=== PATIENT | male | born 1975 | race Hispanic/Latino ===

== ENCOUNTER 2018-09-14 10:27 | Emergency (ER) | payer BC ==
[2018-09-14] MEDS ORDERED: ONDANSETRON HCL 4 MG/2 ML VIAL ONE (11:03)
[2018-09-14] MEDS ORDERED: SODIUM CHLORIDE 0.9% 1000ML 1,000 ML IV ONE (11:04)
[2018-09-14 11:06] LABS: APPEARANCE,URINE CLEAR (CLEAR); BILIRUBIN,URINE NEGATIVE (NEGATIVE); COLOR,URINE YELLOW (YELLOW); GLUCOSE, URINE (UA) >=1000 mg/dL (NEGATIVE); KETONES,URINE 5 mg/dL (NEGATIVE); LEUKOCYTE ESTERASE ,URINE NEGATIVE (NEGATIVE); NITRATE,URINE NEGATIVE (NEGATIVE); OCCULT BLOOD,URINE TRACE-INTACT (NEGATIVE); PH,URINE 5.5 (5.0-8.0); PROTEIN,URINE 30 mg/dL (NEGATIVE); UROBILINOGEN,URINE 0.2 mg/dL (0.2-1.0)
[2018-09-14 11:17] LABS: BACTERIA,URINE None Seen /HPF (None Seen); RBC,URINE 0-1 /HPF (0-1); SQUAMOUS EPITHELIAL CELL,UR 0-2 /HPF (0-2); WBC,URINE 0-1 /HPF (0-1)
[2018-09-14 11:24] LABS: AMPHET/METH SCREEN,URINE NEGATIVE (NEGATIVE); BARBITURATE SCREEN, URINE NEGATIVE (NEGATIVE); BENZODIAZEPINES SCREEN,URINE NEGATIVE (NEGATIVE); CANNABINOID SCREEN,URINE NEGATIVE (NEGATIVE); COCAINE SCREEN,URINE NEGATIVE (NEGATIVE); OPIATE SCREEN,URINE NEGATIVE (NEGATIVE); PHENCYCLIDINE SCREEN,URINE NEGATIVE (NEGATIVE)
[2018-09-14 11:37] LABS: BASOPHILS % (AUTO) 0.6 % (0.0-5.0); EOSINOPHILS % (AUTO) 1.6 % (0.0-8.0); HEMATOCRIT 39.3 % (42-54); LYMPHOCYTES % (AUTO) 23.6 % (21.0-51.0); MEAN CORPUSCULAR HEMOGLOBIN 35.1 pg (27.0-33.0); MEAN CORPUSCULAR HGB CONC 35.2 g/dL (32.0-36.0); MEAN CORPUSCULAR VOLUME 99.6 fL (79-99); MONOCYTES % (AUTO) 7.7 % (3.0-13.0); NEUTROPHILS % (AUTO) 66.5 % (40.0-77.0); NUCLEATED RED BLOOD CELLS 0.2 % (0.0-0.19); PLATELET COUNT (AUTO) 194 K/uL (130-400); RED BLOOD CELL COUNT(AUTO) 3.95 MIL/uL (4.50-6.20); RED CELL DISTRIBUTION WIDTH 12.3 % (11.0-15.5)
[2018-09-14 12:09] LABS: POTASSIUM 4.7 mmol/L (3.5-5.1)
[2018-09-14 12:17] LABS: ALBUMIN 3.6 g/dL (3.5-5.0); BILIRUBIN,DIRECT 0.1 mg/dL (0.0-0.3); BILIRUBIN,TOTAL 0.7 mg/dL (0.2-1.0); TOTAL PROTEIN, SERUM 7.8 g/dL (6.0-8.3)
[2018-09-14 12:29] LABS: B-TYPE NATRIURETIC PEPTIDE 10 pg/mL (0-100)
== END 2018-09-14 14:16 | disposition home or self-care (01) ==
LOC: EDH 10:27
DX: R42 Dizziness and giddiness (principal); I10 Essential (primary) hypertension; E78.00 Pure hypercholesterolemia, unspecified; E11.9 Type 2 diabetes mellitus without complications; Z72.0 Tobacco use
CPT/HCPCS: 36415; 71045; 80048; 80076; 80305; 81001; 82550; 82948; 83880; 84484; 85025; 93005; 96361; 96374; 99285; J2405; J7030

== ENCOUNTER → 2018-09-22 | Outpatient (CLI) | payer BC ==
[~2018-09-22] MED LIST: IOHEXOL-350 50ML VIAL IV ONE
== END | disposition home or self-care (01) ==
LOC: RAH 09:20
PROVIDERS: ATTEND Nurse Practitioner Adult Health
DX: R42 Dizziness and giddiness (principal); R51 Headache
CPT/HCPCS: 70470; Q9967

== ENCOUNTER → 2018-09-27 | Outpatient (CLI) | payer OTHER | END | disposition home or self-care (01) | LOC: RAH 12:02 | PROVIDERS: ATTEND Nurse Practitioner Adult Health | DX: Z13.6 Encounter for screening for cardiovascular disorders (principal) | CPT/HCPCS: 75571 ==

== ENCOUNTER → 2018-10-03 | Outpatient (CLI) | payer BC | END | disposition home or self-care (01) | LOC: RAH 11:13 | PROVIDERS: ATTEND Internal Medicine Cardiovascular Disease | DX: E04.1 Nontoxic single thyroid nodule (principal); E07.9 Disorder of thyroid, unspecified | CPT/HCPCS: 76536 ==

== ENCOUNTER 2018-11-07 09:50 | Observation (INO) | payer BC ==
[2018-11-02 12:42] VITALS: BP 131/76
[2018-11-02 12:48] LABS: APPEARANCE,URINE Cloudy (CLEAR); BASOPHILS % (AUTO) 1.1 % (0.0-5.0); BILIRUBIN,URINE Negative (NEGATIVE); COLOR,URINE Yellow (YELLOW); EOSINOPHILS % (AUTO) 2.3 % (0.0-8.0); GLUCOSE, URINE (UA) >=1000 mg/dL (NEGATIVE); HEMATOCRIT 39.6 % (42-54); KETONES,URINE Negative (NEGATIVE); LEUKOCYTE ESTERASE ,URINE Negative (NEGATIVE); LYMPHOCYTES % (AUTO) 25.7 % (21.0-51.0); MEAN CORPUSCULAR HEMOGLOBIN 35.2 pg (27.0-33.0); MEAN CORPUSCULAR HGB CONC 34.7 g/dL (32.0-36.0); MEAN CORPUSCULAR VOLUME 101.4 fL (79-99); NEUTROPHILS % (AUTO) 61.9 % (40.0-77.0); NITRATE,URINE Negative (NEGATIVE); NUCLEATED RED BLOOD CELLS 0.1 % (0.0-0.19); OCCULT BLOOD,URINE Trace (NEGATIVE); PLATELET COUNT (AUTO) 211 K/uL (130-400); PROTEIN,URINE POS 2+ mg/dL (NEGATIVE); RED CELL DISTRIBUTION WIDTH 12.6 % (11.0-15.5); WHITE BLOOD COUNT (AUTO) 9.4 K/uL (4.8-10.8)
[2018-11-02 12:55] VITALS: BP 131/76
[2018-11-02 12:55] LABS: CREATININE 0.9 mg/dL (0.5-1.5); POTASSIUM 4.9 mmol/L (3.5-5.1)
[2018-11-02 12:57] LABS: INR 0.95 (0.85-1.15)
[2018-11-02 13:34] LABS: BACTERIA,URINE None Seen /HPF (None Seen); MUCUS,URINE Moderate LPF (None Seen); RBC,URINE 0-1 /HPF (0-1); WBC,URINE None Seen /HPF (0-1)
[~2018-11-07] VITALS: Ht 188 cm; Wt 103.1 kg
[2018-11-07] VITALS (10 sets, daily range): BP systolic 112–166; BP diastolic 64–89
[~2018-11-07 09:50] MED LIST changes: +AMLO2.5T4 PO; +ASPI-1181 PO; +ATOR10TA69 PO; +GLIP10TA9 PO; +INSU3INS10 SQ; -IOHEXOL-350 50ML VIAL IV ONE; +ISOS20TA7 PO; +METF-527 PO; +METO-391 PO
--- NOTE | 2018-11-07 11:15 | NUR ---
Spoke with JESSICA Joshua. Informed Andrea of pt's blood sugar and orders given for 1/2 sliding scale. Also informed JESSICA Mendez that the pt had not taken any of his medications this morning. No orders given to administer any.
--- NOTE | 2018-11-07 11:20 | NUR ---
Pt allowed to have coffee/water/juice x 1 as per SUSAN Watkins Day Pt [employer] as SUSAN Mcknight called from director of cath lab and stated that there was a delay.
[2018-11-07] MEDS ORDERED: INSULIN HUMULIN R 100 UNIT/ML 3ML ONE (11:21)
[2018-11-07] MEDS ORDERED: INSULIN HUMULIN R 100 UNIT/ML 3ML SQ SCH (12:00)
[2018-11-07] MEDS ORDERED: IOHEXOL 350 MG/ML 100ML INFUS..BTL IV ONE (16:59)
[2018-11-07] MEDS ORDERED: LIDOCAINE HCL 2% 20ML ONE (16:59)
[2018-11-07] MEDS ORDERED: BIVALIRUDIN 250 MG/VIAL IV ONE (16:59)
[2018-11-07] MEDS ORDERED: IOHEXOL-350 50ML VIAL IV ONE ×2 (16:59→18:37)
[2018-11-07] MEDS ORDERED: NITROGLYCERIN 5 MG/ML 10 ML VIAL IV ONE (16:59)
[2018-11-07] MEDS ORDERED: MIDAZOLAM HCL 1 MG/ML 2ML VIAL ONE (17:53)
[2018-11-07] MEDS ORDERED: HEPARIN SODIUM 1000UNIT/ML 10ML VIAL ONE (18:16)
[2018-11-07] MEDS ORDERED: ADENOSINE 90MG/30ML VIAL IV ONE (18:18)
[2018-11-07] MEDS ORDERED: LABETALOL 20 MG/4 ML DISP.SYRIN IV ONE (18:49)
[2018-11-07] MEDS ORDERED: SODIUM CHLORIDE 0.9% 1000ML 1,000 ML IV SCH (19:08)
[2018-11-07] MEDS ORDERED: GLUCAGON 1MG KIT 1 MG ML IM PRN (19:15)
[2018-11-07] MEDS ORDERED: LABETALOL HCL 5 MG/ML 20ML VIAL IV PRN (19:15)
[2018-11-07] MEDS ORDERED: DEXTROSE 50%-WATER 50 ML DISP.SYRIN IV PRN (19:15)
[2018-11-07] MEDS ORDERED: LABETALOL HCL 5 MG/ML 20ML VIAL IV ONE (19:27)
[2018-11-07] MEDS ORDERED: PHARMACY COMMUNICATION MISC SCH (20:15)
[2018-11-07] MEDS ORDERED: Metoprolol Succinate 50 MG PO SCH (21:00)
[2018-11-07] MEDS ORDERED: ATORVASTATIN CALCIUM 20 MG TABLET PO SCH (21:00)
[2018-11-07] MEDS: INSULIN HUMULIN R 100 UNIT/ML 3ML SQ SCH (21:00)
[2018-11-07] MEDS: AMLODIPINE BESYLATE 2.5 MG TAB PO SCH (21:05)
[2018-11-07] MEDS: ISOSORBIDE MONONITRATE 20 MG TABLET PO SCH (21:05)
[2018-11-07] MEDS ORDERED: METOPROLOL TARTRATE 50 MG TAB PO ONE (22:45)
[2018-11-08 04:00] VITALS: BP 106/63
[2018-11-08 05:27] LABS: HEMATOCRIT 35.7 % (42-54); MEAN CORPUSCULAR HEMOGLOBIN 35.6 pg (27.0-33.0); MEAN CORPUSCULAR HGB CONC 34.9 g/dL (32.0-36.0); MEAN CORPUSCULAR VOLUME 102.1 fL (79-99); NUCLEATED RED BLOOD CELLS 0.1 % (0.0-0.19); PLATELET COUNT (AUTO) 153 K/uL (130-400); RED CELL DISTRIBUTION WIDTH 12.7 % (11.0-15.5); WHITE BLOOD COUNT (AUTO) 7.8 K/uL (4.8-10.8)
[2018-11-08 05:51] LABS: CREATININE 0.8 mg/dL (0.5-1.5); POTASSIUM 4.1 mmol/L (3.5-5.1)
[2018-11-08] MEDS: INSULIN HUMULIN R 100 UNIT/ML 3ML SQ SCH ×2 (06:44→11:41)
[2018-11-08 07:30] VITALS: BP 161/80
--- NOTE | 2018-11-08 08:45 | NUR ---
AM ASSESSMENT PT LAYING IN BED, RESTING. SPOUSE SPOUSE @ BEDSIDE. A/O X 3. NO SOB. NO DISTRESS NOTED. DENIES CHEST PAIN OR DISCOMFORT. DENIES PALPITATIONS. TELE: SR. DENIES N/V AND/OR DIARRHEA. RT GROIN D-STAT, DRY & INTACT. PUNCTURE SITE SOFT, NON-TENDER. NO BLEEDING, NO HEMATOMA NOTED. (+) BILATERAL PEDAL PULSES. BLE PINK & WARM TO TOUCH. UP AD TRAE. INSTRUCTED TO CALL FOR ASSISTANCE. CALL ALEX W/IN REACH.
[2018-11-08] MEDS ORDERED: Metoprolol Succinate 50 MG PO SCH (09:00)
[2018-11-08] MEDS ORDERED: GLIPIZIDE 5 MG TABLET PO SCH (09:00)
[2018-11-08] MEDS: ISOSORBIDE MONONITRATE 20 MG TABLET PO SCH (09:00)
[2018-11-08] MEDS ORDERED: FLU VACC QS2019-20 36MOS UP/PF 60 MCG/0.5 ML ML IM ONE (09:00)
[2018-11-08] MEDS ORDERED: ASPIRIN 81 MG EC TAB PO SCH (09:00)
[2018-11-08] MEDS: AMLODIPINE BESYLATE 2.5 MG TAB PO SCH (09:04)
[2018-11-08 11:00] VITALS: BP 138/77
--- NOTE | 2018-11-08 12:40 | NUR ---
DISCHARGE VERBAL & WRITTEN DISCHARGE INSTRUCTIONS REVIEWED & GIVEN TO PT & SPOUSE. QUESTIONS ENCOURAGED & CLARIFIED. PROPER CARE & ACTIVITY AFTER LEFT HEART REVIEWED. PRESCRIPTION FOR METOPROLOL SUCCINATE REVIEWED. & GIVEN TO PT. SIGNED COPY PLACED IN CHART. TELE ZEINA REMOVED EARLIER. IV DISCONTINUED. D-STAT DSG REMOVED BY DR VEE. PT & SPOUSE TO GATHER PERSONAL BELONGINGS. WILL NOTIFY STAFF WHEN READY TO BE TAKEN TO PRIVATE VEHICLE.
--- NOTE | 2018-11-08 12:50 | NUR ---
DISCHARGE PT TAKEN TO PRIVATE VEHICLE VIA WC BY [facility] PCP, ACCOMPANIED BY SPOUSE. NO DISTRESS NOTED.
== END 2018-11-08 12:45 | disposition home or self-care (01) ==
LOC: DAH 09:50 → 4CH 09:51 → DAH 09:51
PROVIDERS: ADMIT Internal Medicine Cardiovascular Disease; ATTEND Internal Medicine Cardiovascular Disease
DX: I25.10 Atherosclerotic heart disease of native coronary artery without angina pectoris (principal); E11.9 Type 2 diabetes mellitus without complications; I10 Essential (primary) hypertension; E78.5 Hyperlipidemia, unspecified; R79.89 Other specified abnormal findings of blood chemistry; F17.210 Nicotine dependence, cigarettes, uncomplicated; Z90.49 Acquired absence of other specified parts of digestive tract; Z87.19 Personal history of other diseases of the digestive system; Z79.4 Long term (current) use of insulin; Z79.82 Long term (current) use of aspirin; Z79.899 Other long term (current) drug therapy
CPT/HCPCS: 36415 ×2; 71045; 80048 ×2; 80061; 81001; 82948 ×6; 85025; 85027; 85610; 85730; 93005; 93458; 93571; 93572; 96372; A4215; A4216; A4221; A4222; A4223 ×3; A4606; C1760; C1769; C1887 ×2; C1894; G0378 ×18; J0153; J1644 ×2; J1815 ×3; J2250; J3490 ×3; Q9965; Q9967 ×3; 99156; 99157; J0583

== ENCOUNTER 2021-12-18 14:14 | Inpatient (IN) | payer BC ==
[~2021-12-18] VITALS: Ht 182.9 cm; Wt 102.6 kg
[~2021-12-18 14:14] MED LIST changes: -AMLO2.5T4 PO; -ASPI-1181 PO; +ASPI-1443 PO; +EMPA25TA PO; -ISOS20TA7 PO; +ISOS20TA85 PO; +LISI10TA24 PO
[2021-12-18 14:43] LABS: BASOPHILS % (AUTO) 0.4 % (0.0-5.0); EOSINOPHILS % (AUTO) 1.8 % (0.0-8.0); HEMATOCRIT 28.2 % (42-54); LYMPHOCYTES % (AUTO) 11.3 % (21.0-51.0); MEAN CORPUSCULAR HEMOGLOBIN 32.1 pg (27.0-33.0); MEAN CORPUSCULAR HGB CONC 34.8 g/dL (32.0-36.0); MEAN CORPUSCULAR VOLUME 92.5 fL (79-99); MONOCYTES % (AUTO) 15.4 % (3.0-13.0); PLATELET COUNT (AUTO) 167 K/uL (130-400); RED BLOOD CELL COUNT(AUTO) 3.05 MIL/uL (4.50-6.20); RED CELL DISTRIBUTION WIDTH 14.4 % (11.0-15.5); WHITE BLOOD COUNT (AUTO) 7.3 K/uL (4.8-10.8)
[2021-12-18 15:03] LABS: CREATININE 1.9 mg/dL (0.5-1.5); POTASSIUM 4.5 mmol/L (3.5-5.1)
[2021-12-18 15:08] LABS: ALBUMIN 3.1 g/dL (3.5-5.0); TOTAL PROTEIN, SERUM 7.7 g/dL (6.0-8.3)
[2021-12-18] MEDS ORDERED: ZOSYN 3.375GM +NS 50ML IV STA (17:03)
[2021-12-18] MEDS ORDERED: 0.9% NACL 250ML IV SCH (17:30)
[2021-12-18] MEDS ORDERED: VANCOMYCIN 1G/250ML KIT 250 ML IV ONE ×2 (17:30→21:00)
[2021-12-18] MEDS ORDERED: VANCOMYCIN 1G VIAL IVPB SCH (17:30)
[2021-12-18] MEDS ORDERED: VANCOMYCIN 1G VIAL IVPB ONE (17:30)
[2021-12-18] MEDS ORDERED: ACETAMINOPHEN 325 MG TAB PO PRN (19:30)
[2021-12-18] MEDS ORDERED: VANCOMYCIN PROTOCOL PER PHARMACY IV PRN (19:30)
[2021-12-18] MEDS ORDERED: ONDANSETRON 4MG INJ IV PRN (19:30)
[2021-12-18] MEDS ORDERED: HYDROCODONE/ACETAMINOPHEN 5/325 MG TAB PO PRN ×2 (19:30)
[2021-12-18] MEDS ORDERED: ZOSYN 3.375GM+NS 50ML 50 ML IV SCH (19:30)
[2021-12-18] MEDS: 0.9%NACL 1000ML 1,000 ML IV SCH (19:36)
[2021-12-18] MEDS: INSULIN HUMULIN R 100 UNIT/ML 3ML SQ SCH (21:00)
[2021-12-18 21:12] LABS: APPEARANCE,URINE CLEAR (CLEAR); BILIRUBIN,URINE NEGATIVE (NEGATIVE); COLOR,URINE LIGHT-YELLOW (YELLOW); CREATININE,URINE RANDOM 66 mg/dL (30-135); GLUCOSE, URINE (UA) TRACE mg/dL (NEGATIVE); KETONES,URINE NEGATIVE (NEGATIVE); LEUKOCYTE ESTERASE ,URINE NEGATIVE Leu/uL (NEGATIVE); NITRATE,URINE NEGATIVE (NEGATIVE); OCCULT BLOOD,URINE SMALL (NEGATIVE); PH,URINE 5.5 (5.0-8.0); PROTEIN,URINE 100 mg/dL (NEGATIVE); SODIUM,URINE RANDOM 116 mmol/l (40-220); UROBILINOGEN,URINE 0.2 mg/dL (0.2-1.0)
[2021-12-18 21:20] LABS: MUCUS,URINE RARE LPF (None Seen); SQUAMOUS EPITHELIAL CELL,UR RARE /HPF (0-2); WBC,URINE 0-1 /HPF (0-1)
[2021-12-19 00:40] VITALS: BP 111/65
[2021-12-19] MEDS: ZOSYN 3.375GM+NS 50ML 50 ML IV SCH ×3 (01:32→17:51)
[2021-12-19] MEDS: 0.9%NACL 1000ML 1,000 ML IV SCH (01:32)
[2021-12-19] MEDS ORDERED: LISI40TA9 PO (03:16)
[2021-12-19] MEDS ORDERED: MECO10005 PO (03:16)
[2021-12-19] MEDS ORDERED: MECL-160 PO (03:16)
[2021-12-19] MEDS ORDERED: AEC81 PO (03:16)
[2021-12-19] MEDS ORDERED: CLOP75TA32 PO (03:16)
[2021-12-19] MEDS ORDERED: METO75TA PO (03:16)
[2021-12-19] MEDS ORDERED: BACL5TAB PO (03:16)
[2021-12-19] MEDS ORDERED: ATOR20TA65 PO (03:16)
[2021-12-19] MEDS ORDERED: NIFE30TA98 PO (03:16)
[2021-12-19] MEDS ORDERED: GLIP5TAB11 PO (03:16)
[2021-12-19] MEDS ORDERED: GARL1000 PO (03:16)
[2021-12-19] MEDS ORDERED: INSU100V52 SQ (03:16)
[2021-12-19] MEDS ORDERED: FIBER CAPSULES PO (03:16)
[2021-12-19] MEDS ORDERED: METF-444 PO (03:16)
[2021-12-19] MEDS ORDERED: CLIN-141 PO (03:16)
[2021-12-19 04:00] VITALS: BP 138/68
[2021-12-19] MEDS ORDERED: 0.9% NACL 250ML 250 ML ONE (06:29)
[2021-12-19] MEDS: VANCOMYCIN 1G/250ML KIT 250 ML IV SCH ×2 (06:33→17:51)
[2021-12-19] MEDS: INSULIN HUMULIN R 100 UNIT/ML 3ML SQ SCH ×4 (06:40→20:54)
[2021-12-19 07:06] VITALS: BP 134/73
[2021-12-19 07:19] LABS: BASOPHILS % (AUTO) 0.3 % (0.0-5.0); EOSINOPHILS % (AUTO) 1.6 % (0.0-8.0); HEMATOCRIT 27.6 % (42-54); LYMPHOCYTES % (AUTO) 13.2 % (21.0-51.0); MEAN CORPUSCULAR HEMOGLOBIN 31.8 pg (27.0-33.0); MEAN CORPUSCULAR HGB CONC 34.1 g/dL (32.0-36.0); MEAN CORPUSCULAR VOLUME 93.2 fL (79-99); MONOCYTES % (AUTO) 19.6 % (3.0-13.0); NEUTROPHILS % (AUTO) 63.9 % (40.0-77.0); PLATELET COUNT (AUTO) 160 K/uL (130-400); RED BLOOD CELL COUNT(AUTO) 2.96 MIL/uL (4.50-6.20); RED CELL DISTRIBUTION WIDTH 14.3 % (11.0-15.5); WHITE BLOOD COUNT (AUTO) 5.8 K/uL (4.8-10.8)
[2021-12-19 07:26] LABS: HEMOGLOBIN A1C 6.9 % (4.0-6.0)
[2021-12-19 07:40] LABS: CREATININE 1.2 mg/dL (0.5-1.5); MAGNESIUM 1.5 mg/dL (1.80-2.40); PHOSPHORUS 3.4 mg/dL (2.5-4.9); POTASSIUM 4.1 mmol/L (3.5-5.1)
[2021-12-19 07:42] LABS: % IRON SATURATION 6.9 % (30-44)
[2021-12-19] MEDS: FERROUS SULFATE 325 MG TABLET.DR PO SCH (08:44)
[2021-12-19] MEDS: FAMOTIDINE 20MG TAB PO SCH (08:44)
[2021-12-19] MEDS ORDERED: FAMOTIDINE 20MG VIAL IV PRN (09:00)
[2021-12-19] MEDS ORDERED: MAGNESIUM 2GM PREMIX 50ML 50 ML IV PRN (11:00)
[2021-12-19] MEDS ORDERED: POTASSIUM CHLORIDE 10% ELIXIR 20 MEQ/15 ML UDCUP PO PRN (11:00)
[2021-12-19] MEDS ORDERED: LIDOCAINE HCL-MPF 1% 2ML VIAL IV PRN (11:00)
[2021-12-19] MEDS ORDERED: POTASSIUM CHLORIDE 20MEQ/100ML 100 ML IV PRN (11:00)
[2021-12-19] MEDS ORDERED: KCL 20 MEQ ERTAB PO PRN (11:00)
[2021-12-19 11:10] VITALS: BP 148/78
[2021-12-19] MEDS ORDERED: GADOTERATE MEGLUMINE 10 MMOL/20 ML VIAL IV ONE (11:54)
[2021-12-19] MEDS: ASPIRIN 81 MG EC TAB PO SCH (12:55)
[2021-12-19] MEDS: BACLOFEN 10 MG TABLET PO SCH ×3 (12:55→20:52)
[2021-12-19] MEDS: NIFEDIPINE ER 30 MG TAB PO SCH (12:55)
[2021-12-19 16:22] VITALS: BP 156/79
[2021-12-19 20:09] VITALS: BP 136/65
[2021-12-19] MEDS: ATORVASTATIN 20 MG TABLET PO SCH (20:52)
[2021-12-20 00:06] VITALS: BP 136/71
[2021-12-20] MEDS: ZOSYN 3.375GM+NS 50ML 50 ML IV SCH ×3 (01:12→17:06)
[2021-12-20 03:54] VITALS: BP 126/82
[2021-12-20 05:46] LABS: BASOPHILS % (AUTO) 0.4 % (0.0-5.0); EOSINOPHILS % (AUTO) 2.3 % (0.0-8.0); HEMATOCRIT 26.6 % (42-54); LYMPHOCYTES % (AUTO) 20.9 % (21.0-51.0); MEAN CORPUSCULAR HEMOGLOBIN 32.4 pg (27.0-33.0); MEAN CORPUSCULAR HGB CONC 34.6 g/dL (32.0-36.0); MEAN CORPUSCULAR VOLUME 93.7 fL (79-99); MONOCYTES % (AUTO) 17.5 % (3.0-13.0); PLATELET COUNT (AUTO) 171 K/uL (130-400); RED BLOOD CELL COUNT(AUTO) 2.84 MIL/uL (4.50-6.20); RED CELL DISTRIBUTION WIDTH 13.8 % (11.0-15.5); WHITE BLOOD COUNT (AUTO) 5.3 K/uL (4.8-10.8)
[2021-12-20 06:21] LABS: CREATININE 1.1 mg/dL (0.5-1.5); POTASSIUM 4.4 mmol/L (3.5-5.1)
[2021-12-20] MEDS: INSULIN HUMULIN R 100 UNIT/ML 3ML SQ SCH ×4 (07:30→21:03)
[2021-12-20 07:40] VITALS: BP 126/66
[2021-12-20] MEDS: LISINOPRIL 40 MG TABLET PO SCH (08:38)
[2021-12-20] MEDS: NIFEDIPINE ER 30 MG TAB PO SCH (08:38)
[2021-12-20] MEDS: CLOPIDOGREL 75MG TAB PO SCH (08:39)
[2021-12-20] MEDS: BACLOFEN 10 MG TABLET PO SCH ×3 (08:39→21:04)
[2021-12-20] MEDS: FERROUS SULFATE 325 MG TABLET.DR PO SCH (08:39)
[2021-12-20] MEDS: FAMOTIDINE 20MG TAB PO SCH (08:39)
[2021-12-20] MEDS: ASPIRIN 81 MG EC TAB PO SCH (08:39)
[2021-12-20 11:38] VITALS: BP 140/73
[2021-12-20] MEDS ORDERED: BALSAM PERU/CASTOR OIL 60 GM TUBE TP SCH (14:00)
[2021-12-20] MEDS: VANCOMYCIN 1G/250ML KIT 250 ML IV SCH ×2 (14:59→22:23)
[2021-12-20 15:41] VITALS: BP 144/76
[2021-12-20] MEDS ORDERED: GADOTERATE MEGLUMINE 10 MMOL/20 ML VIAL IV ONE (15:51)
[2021-12-20 20:00] VITALS: BP 142/72
[2021-12-20] MEDS: ATORVASTATIN 20 MG TABLET PO SCH (21:04)
[2021-12-21] VITALS (18 sets, daily range): BP systolic 121–160; BP diastolic 67–99
[2021-12-21] MEDS: ZOSYN 3.375GM+NS 50ML 50 ML IV SCH ×2 (01:00→09:42)
[2021-12-21 05:35] LABS: BASOPHILS % (AUTO) 0.3 % (0.0-5.0); EOSINOPHILS % (AUTO) 3.7 % (0.0-8.0); HEMATOCRIT 25.5 % (42-54); MEAN CORPUSCULAR HEMOGLOBIN 32.6 pg (27.0-33.0); MEAN CORPUSCULAR HGB CONC 34.9 g/dL (32.0-36.0); MEAN CORPUSCULAR VOLUME 93.4 fL (79-99); MONOCYTES % (AUTO) 17.7 % (3.0-13.0); NEUTROPHILS % (AUTO) 54.4 % (40.0-77.0); PLATELET COUNT (AUTO) 169 K/uL (130-400); RED BLOOD CELL COUNT(AUTO) 2.73 MIL/uL (4.50-6.20); RED CELL DISTRIBUTION WIDTH 13.7 % (11.0-15.5); WHITE BLOOD COUNT (AUTO) 6.4 K/uL (4.8-10.8)
[2021-12-21 05:52] LABS: INR 0.94 (0.85-1.15); PROTHROMBIN TIME 10.3 SEC (9.6-11.6)
[2021-12-21 05:53] LABS: PARTIAL THROMBOPLASTIN TIME 27.9 SEC (26.3-35.5)
[2021-12-21 06:19] LABS: ALBUMIN 2.5 g/dL (3.5-5.0); MAGNESIUM 1.7 mg/dL (1.80-2.40); POTASSIUM 4.2 mmol/L (3.5-5.1)
[2021-12-21] MEDS ORDERED: MIDAZOLAM HCL 1 MG/ML 2ML VIAL ONE (06:39)
[2021-12-21] MEDS ORDERED: FENTANYL CITRATE PF 50 MCG/1 ML 2ML VIAL ONE ×2 (06:39→07:13)
[2021-12-21] MEDS ORDERED: PROPOFOL 10 MG/ML 20ML VIAL IV ONE (06:40)
[2021-12-21] MEDS: VANCOMYCIN 1G/250ML KIT 250 ML IV SCH ×2 (06:49→14:24)
[2021-12-21] MEDS ORDERED: BUPIVACAINE/PF 0.25% 30ML VIAL IJ ONE (07:01)
[2021-12-21] MEDS ORDERED: LIDOCAINE 1%-EPI 1:100,000 20 ML VIAL IJ ONE (07:01)
[2021-12-21] MEDS: INSULIN HUMULIN R 100 UNIT/ML 3ML SQ SCH ×2 (07:11→11:37)
[2021-12-21] MEDS ORDERED: PHENYLEPHRINE HCL 10 MG/ML 1ML VIAL IV ONE (07:17)
[2021-12-21] MEDS ORDERED: SODIUM HYPOCHLORITE 0.5% [FULL STRENGTH] 473 ML TOPICAL SOLN TP SCH (09:00)
[2021-12-21] MEDS: ASPIRIN 81 MG EC TAB PO SCH (09:43)
[2021-12-21] MEDS: NIFEDIPINE ER 30 MG TAB PO SCH (09:43)
[2021-12-21] MEDS: FERROUS SULFATE 325 MG TABLET.DR PO SCH (09:43)
[2021-12-21] MEDS: CLOPIDOGREL 75MG TAB PO SCH (09:43)
[2021-12-21] MEDS: BACLOFEN 10 MG TABLET PO SCH ×2 (09:43→14:24)
[2021-12-21] MEDS: LISINOPRIL 40 MG TABLET PO SCH (09:43)
[2021-12-21] MEDS: FAMOTIDINE 20MG TAB PO SCH (09:43)
[2021-12-21] MEDS ORDERED: LEVO750T39 PO (15:29)
[2021-12-21] MEDS ORDERED: CLIN-141 PO (15:29)
[2021-12-21] MEDS ORDERED: LEVOFLOXACIN 750 MG TABLET PO SCH (16:00)
== END 2021-12-21 17:30 | disposition home or self-care (01) | DRG 857 ==
LOC: EDH 14:14 → EDHIP 17:57 → 3CH 12-19 00:13
PROVIDERS: ADMIT Hospitalist; ATTEND Hospitalist
PROC: 0QBN0ZZ Excision of Right Metatarsal, Open Approach (ICD-10-PCS; principal; 2021-12-21 06:57)
DX: T81.49XA Infection following a procedure, other surgical site, initial encounter (principal); M86.8X7 Other osteomyelitis, ankle and foot; N17.9 Acute kidney failure, unspecified; Z20.822 Contact with and (suspected) exposure to COVID-19; D64.9 Anemia, unspecified; I10 Essential (primary) hypertension; L97.519 Non-pressure chronic ulcer of other part of right foot with unspecified severity; S92.334A Nondisplaced fracture of third metatarsal bone, right foot, initial encounter for closed fracture; E11.69 Type 2 diabetes mellitus with other specified complication; E11.51 Type 2 diabetes mellitus with diabetic peripheral angiopathy without gangrene; E78.00 Pure hypercholesterolemia, unspecified; F17.210 Nicotine dependence, cigarettes, uncomplicated; Y83.8 Other surgical procedures as the cause of abnormal reaction of the patient, or of later complication, without mention of misadventure at the time of the procedure; Z89.429 Acquired absence of other toe(s), unspecified side; Z83.3 Family history of diabetes mellitus; Z82.49 Family history of ischemic heart disease and other diseases of the circulatory system; Z79.4 Long term (current) use of insulin
CPT/HCPCS: 36415; 72100; 72158; 73630; 73720; 80048; 80053; 80202; 81001; 82570; 82948; 83036; 83540; 83550; 83605; 83735; 83935; 84100; 84300; 85025; 85610; 85651; 85730; 86850; 86900; 86901; 87040; 87070; 87076; 87077; 87186; 87205; 87635; 93926; G0378; J1815; J2250; J2370; J2543; J2704; J3010; J3370; J3475; J3490; J7030; J7050

== ENCOUNTER → 2022-04-16 | Outpatient (CLI) | payer BC ==
[~2022-04-16] MED LIST changes: +AEC81 PO; -ASPI-1443 PO; -ATOR10TA69 PO; +ATOR20TA65 PO; +BACL5TAB PO; +CLOP75TA32 PO; -EMPA25TA PO; +FIBER CAPSULES PO; -GLIP10TA9 PO; +GLIP5TAB11 PO; +INSU100V52 SQ; -INSU3INS10 SQ; -ISOS20TA85 PO; +MECO10005 PO; +METF-444 PO; -METF-527 PO; -METO-391 PO; +NIFE30TA98 PO; +TIRZ5PEN SQ
[2022-04-16 12:46] LABS: BASOPHILS % (AUTO) 0.4 % (0.0-5.0); EOSINOPHILS % (AUTO) 3.1 % (0.0-8.0); HEMATOCRIT 28.6 % (42-54); LYMPHOCYTES % (AUTO) 20.9 % (21.0-51.0); MEAN CORPUSCULAR HEMOGLOBIN 32.7 pg (27.0-33.0); MEAN CORPUSCULAR HGB CONC 33.6 g/dL (32.0-36.0); MEAN CORPUSCULAR VOLUME 97.3 fL (79-99); MONOCYTES % (AUTO) 10.4 % (3.0-13.0); NEUTROPHILS % (AUTO) 64.7 % (40.0-77.0); PLATELET COUNT (AUTO) 257 K/uL (130-400); RED BLOOD CELL COUNT(AUTO) 2.94 MIL/uL (4.50-6.20); RED CELL DISTRIBUTION WIDTH 14.5 % (11.0-15.5); WHITE BLOOD COUNT (AUTO) 7.4 K/uL (4.8-10.8)
[2022-04-16 12:52] LABS: INR 0.94 (0.85-1.15); PROTHROMBIN TIME 10.3 SEC (9.6-11.6)
[2022-04-16 12:53] LABS: PARTIAL THROMBOPLASTIN TIME 28.6 SEC (26.3-35.5)
[2022-04-16 13:04] LABS: CREATININE 1.3 mg/dL (0.5-1.5); POTASSIUM 5.4 mmol/L (3.5-5.1)
== END | disposition home or self-care (01) ==
LOC: LAB 08:05
PROVIDERS: ATTEND Internal Medicine Cardiovascular Disease
DX: I10 Essential (primary) hypertension (principal)
CPT/HCPCS: 36415; 80048; 85025; 85610; 85730

== ENCOUNTER → 2022-06-11 | Outpatient (CLI) | payer BC ==
[2022-06-11 12:15] LABS: BASOPHILS % (AUTO) 0.4 % (0.0-5.0); EOSINOPHILS % (AUTO) 2.9 % (0.0-8.0); HEMATOCRIT 30.5 % (42-54); LYMPHOCYTES % (AUTO) 20.4 % (21.0-51.0); MEAN CORPUSCULAR HEMOGLOBIN 32.8 pg (27.0-33.0); MEAN CORPUSCULAR HGB CONC 33.4 g/dL (32.0-36.0); MEAN CORPUSCULAR VOLUME 98.1 fL (79-99); MONOCYTES % (AUTO) 9.1 % (3.0-13.0); NEUTROPHILS % (AUTO) 66.8 % (40.0-77.0); PLATELET COUNT (AUTO) 235 K/uL (130-400); RED BLOOD CELL COUNT(AUTO) 3.11 MIL/uL (4.50-6.20); RED CELL DISTRIBUTION WIDTH 12.2 % (11.0-15.5); WHITE BLOOD COUNT (AUTO) 7.2 K/uL (4.8-10.8)
[2022-06-11 12:26] LABS: CREATININE 1.2 mg/dL (0.5-1.5); POTASSIUM 5.3 mmol/L (3.5-5.1)
[2022-06-11 12:53] LABS: PARTIAL THROMBOPLASTIN TIME 30.8 SEC (26.3-35.5)
[2022-06-11 13:40] LABS: INR 0.95 (0.85-1.15); PROTHROMBIN TIME 10.4 SEC (9.6-11.6)
== END | disposition home or self-care (01) ==
LOC: LAB 08:17
PROVIDERS: ATTEND Internal Medicine Cardiovascular Disease
DX: I87.2 Venous insufficiency (chronic) (peripheral) (principal)
CPT/HCPCS: 36415; 80048; 85025; 85610; 85730

== ENCOUNTER 2023-08-26 05:53 | Day surgery (SDC) | payer BC ==
[2023-08-25 12:47] VITALS: BP 136/77; PULSE 91; RESP 17
[2023-08-25 12:58] LABS: CREATININE 1.5 mg/dL (0.5-1.3); POTASSIUM 4.8 mmol/L (3.5-5.1)
[2023-08-25 13:00] LABS: BASOPHILS # (AUTO) 0.04 K/uL (0.00-0.20); BASOPHILS % (AUTO) 0.5 % (0.0-5.0); EOSINOPHILS # (AUTO) 0.27 K/uL (0.00-0.70); EOSINOPHILS % (AUTO) 3.1 % (0.0-8.0); HEMATOCRIT 30.3 % (42-54); IMMATURE GRANULOCYTE ABSOLUTE 0.09 K/uL (0-1); LYMPHOCYTES # (AUTO) 1.7 K/uL (1.0-4.8); LYMPHOCYTES % (AUTO) 19.2 % (21.0-51.0); MEAN CORPUSCULAR HEMOGLOBIN 33.2 pg (27.0-33.0); MEAN CORPUSCULAR HGB CONC 34.7 g/dL (32.0-36.0); MEAN CORPUSCULAR VOLUME 95.9 fL (79-99); MONOCYTES # (AUTO) 0.9 K/uL (0.1-1.0); MONOCYTES % (AUTO) 10.2 % (3.0-13.0); NEUTROPHILS # (AUTO) 5.8 K/uL (1.8-7.7); PLATELET COUNT (AUTO) 208 K/uL (130-400); RED BLOOD CELL COUNT(AUTO) 3.16 MIL/uL (4.50-6.20); RED CELL DISTRIBUTION WIDTH 11.9 % (11.0-15.5); WHITE BLOOD COUNT (AUTO) 8.8 K/uL (4.8-10.8)
[2023-08-25 13:19] LABS: B-TYPE NATRIURETIC PEPTIDE 12 pg/mL (0-100)
[2023-08-25 13:38] LABS: INR 0.99 (0.85-1.15); PROTHROMBIN TIME 10.7 SEC (9.6-11.6)
[2023-08-25 13:40] LABS: PARTIAL THROMBOPLASTIN TIME 27.3 SEC (26.3-35.5)
[2023-08-25 13:54] LABS: APPEARANCE,URINE CLEAR (CLEAR); BILIRUBIN,URINE NEGATIVE (NEGATIVE); COLOR,URINE COLORLESS (YELLOW); GLUCOSE, URINE (UA) NEGATIVE (NEGATIVE); KETONES,URINE NEGATIVE (NEGATIVE); LEUKOCYTE ESTERASE ,URINE NEGATIVE Leu/uL (NEGATIVE); NITRATE,URINE NEGATIVE (NEGATIVE); OCCULT BLOOD,URINE NEGATIVE (NEGATIVE); PH,URINE 5.5 (5.0-8.0); PROTEIN,URINE 50 mg/dL (NEGATIVE); UROBILINOGEN,URINE 0.2 mg/dL (0.2-1.0)
[2023-08-25 14:00] LABS: ADD UA MICROSCOPIC YES
[2023-08-25 14:01] LABS: MUCUS,URINE RARE LPF (None Seen); RBC,URINE 0-1 /HPF (0-1); SQUAMOUS EPITHELIAL CELL,UR RARE /HPF (0-2)
[2023-08-26] VITALS (11 sets, daily range): BP systolic 114–167; BP diastolic 74–86; PULSE 82–100; RESP 10–19
[~2023-08-26] VITALS: Ht 182.9 cm; Wt 108.6 kg
[~2023-08-26 05:53] MED LIST changes: -GLIP5TAB11 PO; +GLIP5TAB15 PO; +NIFE-78 PO; -NIFE30TA98 PO
[2023-08-26] MEDS: 0.9%NACL 1000ML 1,000 ML IV ONE (06:33)
[2023-08-26] MEDS ORDERED: METO-408 PO (06:43)
[2023-08-26] MEDS ORDERED: RIVA2.5T PO (06:43)
[2023-08-26] MEDS ORDERED: INSLAN SQ (06:43)
[2023-08-26] MEDS ORDERED: DULA1.5P SQ (06:43)
[2023-08-26] MEDS ORDERED: CILO100T3 PO (06:43)
[2023-08-26] MEDS ORDERED: LIDOCAINE HCL 400MG/20ML VIAL ONE (07:26)
[2023-08-26] MEDS ORDERED: SODIUM BICARB 50MEQ 50ML VIAL 50 ML ONE (07:26)
[2023-08-26] MEDS ORDERED: NITROGLYCERIN 50MG VIAL ONE (07:27)
[2023-08-26] MEDS ORDERED: IOHEXOL 350 MG/ML 100ML INFUS..BTL IV ONE (07:27)
[2023-08-26] MEDS ORDERED: MEPERIDINE-PF 25 MG/ML SYG ONE ×2 (07:27→07:43)
[2023-08-26] MEDS ORDERED: NICARDIPINE 25MG INJ IV ONE (07:27)
[2023-08-26] MEDS ORDERED: MIDAZOLAM HCL 1 MG/ML 2ML VIAL ONE ×2 (07:27→07:44)
[2023-08-26] MEDS ORDERED: HEPARIN 10,000 UNIT/10ML (1,000 UNIT/ML) VIAL ONE (07:27)
[2023-08-26] MEDS ORDERED: DEXTROSE 50%-WATER 50 ML DISP.SYRIN IV PRN (08:30)
[2023-08-26] MEDS ORDERED: 0.9%NACL 1000ML 1,000 ML IV SCH (08:30)
[2023-08-26] MEDS ORDERED: INSULIN HUMULIN R 100 UNIT/ML 3ML SQ SCH (11:30)
== END 2023-08-26 13:40 | disposition home or self-care (01) ==
LOC: DAH 05:53
PROVIDERS: ATTEND Internal Medicine Cardiovascular Disease
DX: I25.10 Atherosclerotic heart disease of native coronary artery without angina pectoris (principal); Z88.1 Allergy status to other antibiotic agents; Z88.5 Allergy status to narcotic agent; I12.9 Hypertensive chronic kidney disease with stage 1 through stage 4 chronic kidney disease, or unspecified chronic kidney disease; E11.22 Type 2 diabetes mellitus with diabetic chronic kidney disease; N18.9 Chronic kidney disease, unspecified; E78.5 Hyperlipidemia, unspecified; Z79.01 Long term (current) use of anticoagulants; Z79.4 Long term (current) use of insulin; Z79.899 Other long term (current) drug therapy
CPT/HCPCS: 80048; 83880; 85025; 85610; 85730; 87086; 81001; 36415; 71045; 93005; 93458; 82948 ×2; C1760 ×2; C1894 ×2; Q9965; J3490 ×4; J7030; J2250 ×2; J2175 ×2; J1644; Q9967; A4215; A4222; A4221; A4663; A4216; A4606; A4223 ×3; 99156; 99157

== ENCOUNTER 2023-11-11 13:57 | Emergency (ER) | payer BC ==
[~2023-11-11] VITALS: Ht 185.4 cm; Wt 102.1 kg
[2023-11-11 13:57] VITALS: TEMP 98.9
[~2023-11-11 13:57] MED LIST changes: -AEC81 PO; +AMLO5TAB4 PO; -ATOR20TA65 PO; +ATOR40TA69 PO; -BACL5TAB PO; +CILO100T3 PO; -CLOP75TA32 PO; +DULA1.5P SQ; -FIBER CAPSULES PO; -GLIP5TAB15 PO; +INSLAN SQ; -INSU100V52 SQ; -LISI10TA24 PO; +LOSA-418 PO; -MECO10005 PO; +METO25 PO; -NIFE-78 PO; +RIVA2.5T PO; -TIRZ5PEN SQ
[2023-11-11 14:20] LABS: BASOPHILS # (AUTO) 0.03 K/uL (0.00-0.20); BASOPHILS % (AUTO) 0.4 % (0.0-5.0); EOSINOPHILS # (AUTO) 0.25 K/uL (0.00-0.70); EOSINOPHILS % (AUTO) 3.1 % (0.0-8.0); HEMATOCRIT 32.1 % (42-54); IMMATURE GRANULOCYTE ABSOLUTE 0.03 K/uL (0-1); LYMPHOCYTES # (AUTO) 1.4 K/uL (1.0-4.8); LYMPHOCYTES % (AUTO) 17.5 % (21.0-51.0); MEAN CORPUSCULAR HEMOGLOBIN 32.2 pg (27.0-33.0); MEAN CORPUSCULAR HGB CONC 34.3 g/dL (32.0-36.0); MEAN CORPUSCULAR VOLUME 93.9 fL (79-99); MONOCYTES # (AUTO) 0.8 K/uL (0.1-1.0); MONOCYTES % (AUTO) 10.2 % (3.0-13.0); NEUTROPHILS # (AUTO) 5.5 K/uL (1.8-7.7); NEUTROPHILS % (AUTO) 68.4 % (40.0-77.0); PLATELET COUNT (AUTO) 210 K/uL (130-400); RED BLOOD CELL COUNT(AUTO) 3.42 MIL/uL (4.50-6.20); RED CELL DISTRIBUTION WIDTH 12.8 % (11.0-15.5); WHITE BLOOD COUNT (AUTO) 8.1 K/uL (4.8-10.8)
[2023-11-11 14:32] LABS: CREATININE 1.9 mg/dL (0.5-1.3); POTASSIUM 4.8 mmol/L (3.5-5.1)
[2023-11-11] MEDS: 0.9% NACL 500ML IV.SOLN 500 ML IV ONE (15:18)
[2023-11-11 16:11] VITALS: BP 128/82; PULSE 84; RESP 16; O2SAT 100
== END 2023-11-11 17:01 | disposition home or self-care (01) ==
LOC: EDH 13:57
DX: I95.1 Orthostatic hypotension (principal); R42 Dizziness and giddiness; E11.51 Type 2 diabetes mellitus with diabetic peripheral angiopathy without gangrene; E78.00 Pure hypercholesterolemia, unspecified; I10 Essential (primary) hypertension; I25.10 Atherosclerotic heart disease of native coronary artery without angina pectoris; Z88.5 Allergy status to narcotic agent; Z79.01 Long term (current) use of anticoagulants; Z79.4 Long term (current) use of insulin; Z79.84 Long term (current) use of oral hypoglycemic drugs; Z79.899 Other long term (current) drug therapy; Z95.1 Presence of aortocoronary bypass graft; Z90.49 Acquired absence of other specified parts of digestive tract
CPT/HCPCS: 99284; 96360; 71045; 84484; 80048; 83880; 85025; 36415; 93005; J7040